=== PATIENT | female | born 1985 | race Caucasian/White ===

== ENCOUNTER 2019-03-30 19:27 | Emergency (ER) | payer OTHER ==
[~2019-03-30] VITALS: Ht 160 cm; Wt 77.5 kg
[~2019-03-30 19:27] MED LIST: ALPR0.5T PO; AMLO-218 PO; DOXY100T20 PO; IBUP-1542 PO; PANT40TA3 PO
[2019-03-30 19:36] VITALS: BP 198/98; PULSE 90; RESP 16; Ht 160 cm; Wt 77.5 kg
[2019-03-30] MEDS ORDERED: PHEN-538 PO (21:52)
[2019-03-30] MEDS ORDERED: CEPH-443 PO (21:54)
[2019-03-30] MEDS ORDERED: ACETAMINOPHEN 325 MG TAB PO ONE (22:00)
[2019-03-30] MEDS ORDERED: CEPHALEXIN 500 MG CAP PO ONE (22:00)
--- NOTE | 2019-03-30 22:01 | ERD ---
ER Documentation Chief Complaint Chief Complaint Pt reports burning urination x 8 days HPI 34-year-old female presents with a day history of intermittent burning with urination. Denies fevers, vomiting or abdominal pain, flank pain, discharge, . ROS All systems reviewed and are negative except as per history of present illness. Medications Home Meds Active Scripts Cephalexin* (Keflex*) 500 Mg Capsule, 500 MG PO QID for 5 Days, CAP Prov:ELOY PETTIT MD 03/30/19 Phenazopyridine Hcl* (Pyridium*) 200 Mg Tab, 200 MG PO TID PRN for URINARY PAIN, #6 TAB Prov:ELOY PETTIT MD 03/30/19 Pantoprazole* (Protonix*) 40 Mg Tablet.dr, 40 MG PO DAILY for 10 Days, TAB Prov:ABBEY GARCIA MD 09/23/16 Doxycycline Hyclate* (Doxycycline Hyclate*) 100 Mg Tablet.dr, 100 MG PO BID for 7 Days, TAB Prov:ABBEY GARCIA MD 09/23/16 Ibuprofen* (Motrin*) 600 Mg Tab, 600 MG PO Q6H PRN for PAIN AND OR ELEVATED TEMP, #30 TAB Prov:ELLIOTT CORTES MD 09/16/16 Alprazolam* (Xanax*) 0.5 Mg Tab, 0.5 MG PO Q8H PRN for ANXIETY, #12 TAB Prov:BRIDGER MENENDEZ MD 06/06/15 Reported Medications Amlodipine Besylate* (Norvasc*) 10 Mg Tablet, 10 MG PO DAILY, TAB 06/06/15 Allergies Allergies: Coded Allergies: piperacillin (Verified Allergy, Mild, 09/17/16) tazobactam (Verified Allergy, Mild, 09/17/16) PMhx/Soc History of Surgery: Yes (C section 2011) Anesthesia Reaction: No Hx Neurological Disorder: No Hx Respiratory Disorders: No Hx Cardiac Disorders: Yes (hypertension) Hx Psychiatric Problems: No Hx Miscellaneous Medical Probl: No Hx Alcohol Use: Yes (not recently) Hx Substance Use: Yes (marijuana) Hx Tobacco Use: No Smoking Status: Never smoker FmHx Family History: No diabetes, No coronary disease, No other Physical Exam Vitals Vital Signs Date Temp Pulse Resp B/P (MAP) Pulse Ox O2 O2 Flow FiO2 Time Delivery Rate 03/30/19 99.0 90 16 198/98 19:36 (131) Physical Exam Const: No acute distress Head: Atraumatic Eyes: Normal Conjunctiva ENT: Normal External Ears, Nose and Mouth. Neck: Full range of motion. No meningismus. Resp: Clear to auscultation bilaterally Cardio: Regular rate and rhythm, no murmurs Abd: Soft, non tender, non distended. Normal bowel sounds. No CVA tenderness. Abdomen nontender. Skin: No petechiae or rashes Back: No midline or flank tenderness Ext: No cyanosis, or edema Neur: Awake and alert Psych: Normal Mood and Affect Results 24 hrs Laboratory Tests Test 03/30/19 21:24 03/30/19 21:25 POC Beta HCG, Qualitative NEGATIVE Bedside Urine pH (LAB) 7.0 Bedside Urine Protein (LAB) Negative Bedside Urine Glucose (UA) Negative Bedside Urine Ketones (LAB) Negative Bedside Urine Blood Trace-intact Bedside Urine Nitrite (LAB) Negative Bedside Urine Leukocyte Esterase (L 1+ Current Medications Medications Dose Sig/Raudel Start Time Status Last (Trade) Ordered Route PRN Stop Time Admin Dose Reason Admin 650 mg ONCE ONCE 03/30/19 03/30/19 Acetaminophen PO 22:00 21:49 (Tylenol 03/30/19 22:01 Tab) Cephalexin 500 mg ONCE ONCE 03/30/19 03/30/19 (Keflex) PO 22:00 21:49 03/30/19 22:01 Procedures/MDM hCG negative. Urine shows leukocyte esterase and hemoglobin. Patient given Keflex and Tylenol. Patient resents with signs and symptoms of uncomplicated UTI. Current signs or symptoms do not suggest abdominal pain, pyonephritis, surgical abdomen, sepsis, tubo-ovarian abscess, PID, additional concerning signs or symptoms. Will treat with Keflex, Pyridium, fluids, primary care follow-up and return precautions. The patient was stable with no new complaints during the ER course. Clinically, there is no current evidence to suggest meningitis, sepsis, acute abdomen, pneumonia, stroke, acute coronary syndrome, pulmonary embolism, aortic dissection or any other emergent condition appearing to require further evaluation or hospitalization. Patient counseled regarding my diagnostic impression and care plan. Prior to discharge all questions answered. Pt agrees with treatment plan and understands strict return precautions. Pt is instructed to follow up with primary care provider within 24-48 hours. P recautionary instructions provided including instructions to return to the ER if not improving or for any worsening or changing symptoms or concerns. Disclaimer: Inadvertent spelling and grammatical errors are likely due to EHR/dictation software use and do not reflect on the overall quality of patient care. Also, please note that the electronic time recorded on this note does not necessarily reflect the actual time of the patient encounter. Departure Diagnosis: Primary Impression: UTI (urinary tract infection) Urinary tract infection type: acute cystitis Hematuria presence: without hematuria Qualified Codes: N30.00 - Acute cystitis without hematuria Condition: Stable Patient Instructions: Understanding Urinary Tract Infections (UTIs) Additional Instructions: Urine shows infection we will treat for this. Drink plenty fluids at home. Recheck for fevers, vomiting, abdominal pain, new or worsening symptoms. ELOY PETTIT MD Mar 30, 2019 22:01
== END 2019-03-30 22:52 | disposition home or self-care (01) ==
LOC: FTE 19:27
DX: N30.00 Acute cystitis without hematuria (principal); I10 Essential (primary) hypertension
CPT/HCPCS: 81003; 81025; Z7502; Z7610; 99283